=== PATIENT | male | born 1950 | race Caucasian/White ===

== ENCOUNTER → 2021-02-18 | Day surgery (SDC) | payer MEDICARE, OTHER ==
[~2021-02-18] VITALS: Ht 170.2 cm; Wt 92.7 kg
[~2021-02-18] MED LIST: ALLOPURINOL300 MG PO; ARICEPT 5MG TABL5 MG PO; ASPIRIN EC81 MG PO; AZELASTINE205.5 MCG/; PEPCID AC20 MG PO; PRINIVIL20 MG PO; SINGULAIR10 MG PO; SYNTHROID25 MCG PO; TOPROL XL 50 MG50 MG PO; ZOCOR20 MG PO
== END | disposition home or self-care (01) ==
LOC: FAS 06:30
DX: Z12.11 Encounter for screening for malignant neoplasm of colon (principal); D12.2 Benign neoplasm of ascending colon; D12.3 Benign neoplasm of transverse colon; K63.89 Other specified diseases of intestine; I12.9 Hypertensive chronic kidney disease with stage 1 through stage 4 chronic kidney disease, or unspecified chronic kidney disease; N18.2 Chronic kidney disease, stage 2 (mild); E03.9 Hypothyroidism, unspecified; I25.10 Atherosclerotic heart disease of native coronary artery without angina pectoris; K21.9 Gastro-esophageal reflux disease without esophagitis; M10.9 Gout, unspecified; E78.00 Pure hypercholesterolemia, unspecified; Z85.038 Personal history of other malignant neoplasm of large intestine; Z86.010 Personal history of colon polyps; Z87.891 Personal history of nicotine dependence; Z86.73 Personal history of transient ischemic attack (TIA), and cerebral infarction without residual deficits; Z91.048 Other nonmedicinal substance allergy status; Z79.82 Long term (current) use of aspirin; Z79.899 Other long term (current) drug therapy
CPT/HCPCS: 88305; J2704; J7120